=== PATIENT | female | born 1995 | race Caucasian/White ===

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

== ENCOUNTER 2017-06-28 22:01 | Emergency (ER) | payer SELFPAY ==
[~2017-06-28] VITALS: Ht 154.9 cm; Wt 73.1 kg
[~2017-06-28 22:01] MED LIST: FLUC200T PO
[2017-06-28 22:05] VITALS: BP 130/71
--- NOTE | 2017-06-28 22:10 | NUR ---
TO LOBBY AMBULATORY, IN STABLE CONDITION,A/W FOR BED, ERMD NOTED.
[2017-06-28 22:11] VITALS: BP 130/71
--- NOTE | 2017-06-29 01:49 | NUR ---
PATIENT LEFT WITHOUT BEING SEEN BY DR. FONTAINE. NO FURTHER CARE PROVIDED FOR PATIENT.
== END 2017-06-29 01:49 | disposition left against medical advice (07) ==
LOC: MED 22:01
DX: O26.891 Other specified pregnancy related conditions, first trimester (principal); R10.9 Unspecified abdominal pain

== ENCOUNTER 2020-03-24 22:37 | Observation (INO) | payer MEDICAID ==
[~2020-03-24] VITALS: Ht 157.5 cm; Wt 84.8 kg
[2020-03-24 23:25] VITALS: BP 106/69
== END 2020-03-25 01:50 | disposition home or self-care (01) ==
LOC: MLD 22:37
PROVIDERS: ADMIT Obstetrics & Gynecology; ATTEND Obstetrics & Gynecology
DX: O62.9 Abnormality of forces of labor, unspecified (principal); O46.93 Antepartum hemorrhage, unspecified, third trimester; O34.219 Maternal care for unspecified type scar from previous cesarean delivery; Z88.6 Allergy status to analgesic agent; Z91.018 Allergy to other foods; Z3A.36 36 weeks gestation of pregnancy
CPT/HCPCS: 59025; 76805; 81000; G0378; Q0092

== ENCOUNTER 2020-03-26 08:03 | Inpatient (IN) | payer MEDICAID ==
[~2020-03-26] VITALS: Ht 157.5 cm; Wt 84.8 kg
[2020-03-26] MEDS ORDERED: LACTATED RINGERS 1,000 ML IV SCH (09:00)
[2020-03-26] MEDS ORDERED: CITRIC ACID/SODIUM CITRATE 30 ML UDC PO SCH (09:00)
--- NOTE | 2020-03-26 09:08 | NUR ---
PATIENT HAS BEEN SCREENED AND CATEGORIZED LOW NUTRITION RISK. PATIENT WILL BE SEEN WITHIN 7 DAYS OF ADMISSION. 04/01/[address]
[2020-03-26 10:43] LABS: BASOPHILS % (AUTO) 0.6 % (0.0-2.0); EOSINOPHILS % (AUTO) 0.5 % (0.0-4.0); HEMATOCRIT 34.8 % (36-48); HEMOGLOBIN 11.6 g/dL (12.0-16.0); LYMPHOCYTES # (AUTO) 1.2 K/uL (2.5-16.5); LYMPHOCYTES % (AUTO) 20.3 % (20.5-51.1); MEAN CORPUSCULAR HEMOGLOBIN 29 pg (27-31); MEAN CORPUSCULAR HGB CONC 33 g/dL (33-37); MEAN CORPUSCULAR VOLUME 87.1 fL (80-94); MONOCYTES # (AUTO) 0.5 K/uL (0.8-1.0); MONOCYTES % (AUTO) 7.4 % (1.7-9.3); NEUTROPHILS # (AUTO) 4.4 K/uL (1.8-7.7); NEUTROPHILS % (AUTO) 71.2 % (42.2-75.2); PLATELET COUNT (AUTO) 193 K/uL (140-450); RED CELL DISTRIBUTION WIDTH 12.6 % (11.6-13.7); WHITE BLOOD COUNT (AUTO) 6.1 K/uL (4.8-10.8)
[2020-03-26 10:48] LABS: APPEARANCE,URINE CLEAR (CLEAR); BILIRUBIN,URINE NEGATIVE (NEGATIVE); BLOOD, URINE NEGATIVE (NEGATIVE); COLOR,URINE YELLOW (YELLOW); LEUKOCYTE ESTERASE ,URINE TRACE (NEGATIVE); NITRITE, URINE NEGATIVE (NEGATIVE); PH,URINE 6.5 (5.0-9.0); UGLUCOSE NEGATIVE (NEGATIVE)
[2020-03-26 10:54] LABS: ALBUMIN 2.8 g/dL (3.4-5.0); ANION GAP 12.8 (8-16); CARBON DIOXIDE 24.4 mmol/L (21-32); CREATININE 0.5 mg/dL (0.6-1.3); POTASSIUM 4.2 mmol/L (3.5-5.1); TOTAL BILIRUBIN 0.3 mg/dL (0.0-1.0)
[2020-03-26 12:40] LABS: RBC,URINE NONE SEEN /HPF (0-5)
[2020-03-26 12:41] LABS: WBC,URINE 0-5 /HPF (0-5)
[2020-03-26 13:20] VITALS: BP 108/58
[2020-03-26] MEDS ORDERED: IBUPROFEN 800 MG TAB PO PRN (17:20)
[2020-03-26] MEDS ORDERED: TEMAZEPAM 15 MG CAP PO PRN (17:20)
[2020-03-26] MEDS ORDERED: KETOROLAC 30 MG/ML VIAL IVP PRN (17:20)
[2020-03-26] MEDS ORDERED: METHYLERGONOVINE 0.2 MG/ML AMP IM PRN (17:20)
[2020-03-26] MEDS ORDERED: oxyCODONE/APAP 5/325 MG 1 TAB TAB PO PRN (17:20)
[2020-03-26] MEDS ORDERED: fentaNYL citrate 0.05 MG/ML VIAL ONE (17:40)
[2020-03-26] MEDS ORDERED: MORPHINE PRES FREE 10 MG/10 ML AMP IV ONE (17:41)
[2020-03-26] MEDS ORDERED: MIDAZOLAM 2 MG/2 ML VIAL ONE (17:41)
[2020-03-26] MEDS ORDERED: ONDANSETRON 4 MG/2 ML VIAL ONE (18:02)
[2020-03-26] MEDS ORDERED: METOCLOPRAMIDE 10 MG/2 ML INJ VIAL ONE (18:02)
[2020-03-26] MEDS ORDERED: DEXAMETHASONE 4 MG/ML VIAL ONE (18:02)
[2020-03-26] MEDS ORDERED: OXYTOCIN 20 UNITS/LR PREMIX 1,000 ML IV ONE (18:52)
[2020-03-26] MEDS ORDERED: ONDANSETRON 4 MG/2 ML VIAL IVP PRN (18:55)
[2020-03-26] MEDS ORDERED: diphenhydrAMINE 50 MG/ML VIAL IVP PRN (18:55)
[2020-03-26] MEDS ORDERED: NALOXONE 0.4 MG/ML VIAL IVP PRN (18:55)
[2020-03-27] MEDS: KETOROLAC 30 MG/ML VIAL IM/IVP SCH ×4 (00:13→17:37)
[2020-03-27] MEDS ORDERED: OXYTOCIN 20 UNITS/LR PREMIX 1,000 ML IV ONE (00:31)
[2020-03-27] MEDS: OXYTOCIN 20 UNITS in LACTATED RINGERS 1,000 ML IV SCH ×2 (01:50→09:29)
[2020-03-27 06:00] LABS: BASOPHILS % (AUTO) 0.3 % (0.0-2.0); HEMATOCRIT 34.2 % (36-48); HEMOGLOBIN 11.3 g/dL (12.0-16.0); LYMPHOCYTES % (AUTO) 8.6 % (20.5-51.1); MEAN CORPUSCULAR HEMOGLOBIN 29 pg (27-31); MEAN CORPUSCULAR HGB CONC 33 g/dL (33-37); MEAN CORPUSCULAR VOLUME 87.5 fL (80-94); MONOCYTES # (AUTO) 0.5 K/uL (0.8-1.0); MONOCYTES % (AUTO) 4.4 % (1.7-9.3); NEUTROPHILS # (AUTO) 9.7 K/uL (1.8-7.7); NEUTROPHILS % (AUTO) 86.7 % (42.2-75.2); PLATELET COUNT (AUTO) 176 K/uL (140-450); RED BLOOD CELL COUNT(AUTO) 3.91 MIL/uL (4.20-5.40); RED CELL DISTRIBUTION WIDTH 12.8 % (11.6-13.7); WHITE BLOOD COUNT (AUTO) 11.2 K/uL (4.8-10.8)
[2020-03-27] MEDS ORDERED: KETOROLAC 30 MG/ML VIAL IVP PRN (06:00)
[2020-03-27] MEDS ORDERED: IBUPROFEN 800 MG TAB PO PRN (06:00)
[2020-03-27] MEDS: SODIUM PHOSPHATE 118 ML ENEM RC SCH (09:00)
[2020-03-27] MEDS: DOCUSATE SOD/SENNA 50/8.6 MG 1 TAB PO SCH (21:29)
[2020-03-27] MEDS: oxyCODONE/APAP 5/325 MG 1 TAB TAB PO PRN (23:01)
[2020-03-28] MEDS ORDERED: KETOROLAC 30 MG/ML VIAL IVP PRN (06:00)
[2020-03-28] MEDS ORDERED: IBUPROFEN 800 MG TAB PO PRN (06:00)
[2020-03-28] MEDS: oxyCODONE/APAP 5/325 MG 1 TAB TAB PO PRN ×3 (09:01→22:37)
[2020-03-28] MEDS: SIMETHICONE 80 MG TAB.CHEW PO PRN ×2 (09:01→13:13)
[2020-03-28] MEDS: SODIUM PHOSPHATE 118 ML ENEM RC SCH (09:55)
[2020-03-28] MEDS: DOCUSATE SOD/SENNA 50/8.6 MG 1 TAB PO SCH (21:00)
[2020-03-29] MEDS ORDERED: CAMERA MC ONE (02:36)
[2020-03-29] MEDS: oxyCODONE/APAP 5/325 MG 1 TAB TAB PO PRN (08:29)
[2020-03-29] MEDS: SODIUM PHOSPHATE 118 ML ENEM RC SCH (09:00)
[2020-03-29] MEDS ORDERED: IBUP-2213 PO (15:19)
[2020-03-29] MEDS ORDERED: FERR325E14 PO (15:19)
[2020-03-29] MEDS ORDERED: ACET-5629 PO (15:20)
== END 2020-03-29 16:00 | disposition home or self-care (01) | DRG 540 ==
LOC: MFCC 08:03 → OBSVTOIN 08:03 → MFCC 19:45
PROVIDERS: ADMIT Obstetrics & Gynecology; ATTEND Obstetrics & Gynecology
PROC: 10D00Z1 Extraction of Products of Conception, Low, Open Approach (ICD-10-PCS; principal; 2020-03-26 17:00)
PROC: 3E0234Z Introduction of Serum, Toxoid and Vaccine into Muscle, Percutaneous Approach (ICD-10-PCS; 2020-03-28)
DX: O34.211 Maternal care for low transverse scar from previous cesarean delivery (principal); Z20.828 Contact with and (suspected) exposure to other viral communicable diseases; Z37.0 Single live birth; Z3A.37 37 weeks gestation of pregnancy; Z88.6 Allergy status to analgesic agent; Z91.010 Allergy to peanuts; Z91.018 Allergy to other foods; Z23 Encounter for immunization
CPT/HCPCS: 36415; 80053; 81001; 85025; 86592; 86886; 86900; 86901; 90715; J0690; J1100; J1200; J1885; J2250; J2270; J2405; J2590; J2765; J3010; J7060; J7120

== ENCOUNTER 2022-01-13 10:33 | Observation (INO) | payer MEDICAID ==
[~2022-01-13] VITALS: Ht 157.5 cm; Wt 81.6 kg
[~2022-01-13 10:33] MED LIST changes: +ACET-5629 PO; +FERR325E14 PO; +IBUP-2213 PO
[2022-01-13 11:59] VITALS: BP 111/64
[2022-01-13] MEDS ORDERED: BETAMETH ACET/BETAMETH NA PH 30 MG/5 ML VIAL IM SCH (13:50)
[2022-01-13] MEDS ORDERED: LACTATED RINGERS 1,000 ML IV SCH ×2 (13:50→14:50)
[2022-01-13] MEDS ORDERED: TERBUTALINE 1 MG/ML VIAL SUBQ SCH (13:50)
[2022-01-13] MEDS ORDERED: TERBUTALINE 1 MG/ML VIAL SUBQ ONE (13:59)
== END 2022-01-13 19:20 | disposition home or self-care (01) ==
LOC: MLD 10:33
PROVIDERS: ADMIT Obstetrics & Gynecology; ATTEND Obstetrics & Gynecology
DX: O62.9 Abnormality of forces of labor, unspecified (principal); Z20.822 Contact with and (suspected) exposure to COVID-19; Z3A.35 35 weeks gestation of pregnancy
CPT/HCPCS: 59025; 81000; 87086; 87426; 96360; 96372; G0378; J0702; J3105

== ENCOUNTER 2022-01-14 13:20 | Observation (INO) | payer MEDICAID ==
[~2022-01-14] VITALS: Ht 157.5 cm; Wt 85.3 kg
[2022-01-14] MEDS ORDERED: BETAMETH ACET/BETAMETH NA PH 30 MG/5 ML VIAL IM SCH (13:44)
== END 2022-01-14 15:08 | disposition home or self-care (01) ==
LOC: MLD 13:20
PROVIDERS: ADMIT Obstetrics & Gynecology; ATTEND Obstetrics & Gynecology
DX: O62.9 Abnormality of forces of labor, unspecified (principal); Z3A.35 35 weeks gestation of pregnancy
CPT/HCPCS: 59025; 96372; G0378; J0702

== ENCOUNTER 2022-01-29 11:51 | Inpatient (IN) | payer MEDICAID ==
[~2022-01-29] VITALS: Ht 157.5 cm; Wt 83.5 kg
[2022-01-29] MEDS: LACTATED RINGERS 1,000 ML IV SCH ×2 (02:00→21:34)
[~2022-01-29 11:51] MED LIST changes: -ACET-5629 PO; -FLUC200T PO; -IBUP-2213 PO
[2022-01-29] MEDS ORDERED: PRETAB PO (12:28)
[2022-01-29] MEDS: LACTATED RINGERS 500 ML IV SCH ×3 (12:40→17:15)
[2022-01-29] MEDS ORDERED: MORPHINE SULFATE 10 MG/ML VIAL ONE ×2 (12:47→16:25)
[2022-01-29] MEDS: MORPHINE SULFATE 5 MG/ML VIAL IVP PRN ×2 (12:54→16:28)
[2022-01-29] MEDS: TERBUTALINE 1 MG/ML VIAL SUBQ SCH ×2 (13:00→13:31)
[2022-01-29 13:15] LABS: BASOPHILS % (AUTO) 0.6 % (0.0-2.0); EOSINOPHILS # (AUTO) 0.1 K/uL (0-0.4); EOSINOPHILS % (AUTO) 0.7 % (0.0-4.0); HEMATOCRIT 33.9 % (36-48); HEMOGLOBIN 11.3 g/dL (12.0-16.0); LYMPHOCYTES # (AUTO) 1.4 K/uL (2.5-16.5); LYMPHOCYTES % (AUTO) 19.4 % (20.5-51.1); MEAN CORPUSCULAR HEMOGLOBIN 28 pg (27-31); MEAN CORPUSCULAR HGB CONC 33 g/dL (33-37); MEAN CORPUSCULAR VOLUME 84.4 fL (80-94); MONOCYTES # (AUTO) 0.5 K/uL (0.8-1.0); MONOCYTES % (AUTO) 7.3 % (1.7-9.3); NEUTROPHILS # (AUTO) 5.3 K/uL (1.8-7.7); PLATELET COUNT (AUTO) 239 K/uL (140-450); RED BLOOD CELL COUNT(AUTO) 4.01 MIL/uL (4.20-5.40); RED CELL DISTRIBUTION WIDTH 13.2 % (11.6-13.7); WHITE BLOOD COUNT (AUTO) 7.4 K/uL (4.8-10.8)
[2022-01-29 13:20] VITALS: BP 101/58
[2022-01-29 15:07] LABS: APPEARANCE,URINE SL CLOUDY (CLEAR); BILIRUBIN,URINE NEGATIVE (NEGATIVE); BLOOD, URINE NEGATIVE (NEGATIVE); COLOR,URINE YELLOW (YELLOW); LEUKOCYTE ESTERASE ,URINE 3+ (NEGATIVE); NITRITE, URINE NEGATIVE (NEGATIVE); UGLUCOSE NEGATIVE (NEGATIVE)
[2022-01-29 15:19] LABS: RBC,URINE 0-5 /HPF (0-5)
[2022-01-29 15:20] LABS: OTHER CASTS, URINE None Seen /LPF (None Seen)
[2022-01-30] MEDS ORDERED: MORPHINE SULFATE 10 MG/ML VIAL ONE ×2 (00:17→07:49)
[2022-01-30 00:21] VITALS: BP 94/52
[2022-01-30] MEDS: LACTATED RINGERS 1,000 ML IV SCH ×2 (02:00→06:00)
[2022-01-30] MEDS: MORPHINE SULFATE 5 MG/ML VIAL IVP PRN (07:52)
[2022-01-30] MEDS ORDERED: ceFAZolin 2,000 MG VIAL IV SCH (09:40)
[2022-01-30] MEDS: LACTATED RINGERS 500 ML IV SCH (09:43)
[2022-01-30 10:10] LABS: BASOPHILS % (AUTO) 0.8 % (0.0-2.0); EOSINOPHILS # (AUTO) 0.1 K/uL (0-0.4); EOSINOPHILS % (AUTO) 0.9 % (0.0-4.0); HEMATOCRIT 36.4 % (36-48); HEMOGLOBIN 11.9 g/dL (12.0-16.0); LYMPHOCYTES # (AUTO) 1.7 K/uL (2.5-16.5); LYMPHOCYTES % (AUTO) 29.3 % (20.5-51.1); MEAN CORPUSCULAR HEMOGLOBIN 28 pg (27-31); MEAN CORPUSCULAR HGB CONC 33 g/dL (33-37); MEAN CORPUSCULAR VOLUME 85.4 fL (80-94); MONOCYTES # (AUTO) 0.3 K/uL (0.8-1.0); MONOCYTES % (AUTO) 5.5 % (1.7-9.3); NEUTROPHILS # (AUTO) 3.7 K/uL (1.8-7.7); NEUTROPHILS % (AUTO) 63.5 % (42.2-75.2); PLATELET COUNT (AUTO) 215 K/uL (140-450); RED BLOOD CELL COUNT(AUTO) 4.27 MIL/uL (4.20-5.40); RED CELL DISTRIBUTION WIDTH 13.6 % (11.6-13.7); WHITE BLOOD COUNT (AUTO) 5.8 K/uL (4.8-10.8)
[2022-01-30] MEDS ORDERED: MORPHINE PRES FREE 10 MG/10 ML AMP IV ONE (10:18)
[2022-01-30] MEDS ORDERED: MIDAZOLAM 2 MG/2 ML VIAL ONE (10:19)
[2022-01-30 10:43] LABS: ALBUMIN 2.8 g/dL (3.4-5.0); CARBON DIOXIDE 24.7 mmol/L (21-32); CREATININE 0.6 mg/dL (0.6-1.3); POTASSIUM 3.7 mmol/L (3.5-5.1); TOTAL BILIRUBIN 0.4 mg/dL (0.0-1.0)
[2022-01-30] MEDS ORDERED: KETOROLAC 30 MG/ML VIAL IVP PRN (10:55)
[2022-01-30] MEDS ORDERED: oxyCODONE/APAP 5/325 MG 1 TAB TAB PO PRN (10:55)
[2022-01-30] MEDS ORDERED: METHYLERGONOVINE 0.2 MG/ML AMP IM PRN (10:55)
[2022-01-30] MEDS ORDERED: TEMAZEPAM 15 MG CAP PO PRN (10:55)
[2022-01-30] MEDS ORDERED: MAGNESIUM CITRATE 300 ML BTL PO SCH (10:55)
[2022-01-30] MEDS ORDERED: OXYTOCIN 20 UNITS in LACTATED RINGERS 1,000 ML IV SCH ×2 (10:55→11:10)
[2022-01-30] MEDS ORDERED: diphenhydrAMINE 50 MG/ML VIAL ONE (11:02)
[2022-01-30] MEDS ORDERED: ONDANSETRON 4 MG/2 ML VIAL IVP PRN ×2 (11:10)
[2022-01-30] MEDS ORDERED: NALOXONE 0.4 MG/ML VIAL IVP PRN ×3 (11:10)
[2022-01-30] MEDS ORDERED: NALBUPHINE 10 MG/ML AMP IVP PRN (11:10)
[2022-01-30] MEDS ORDERED: MEPERIDINE 25 MG/ML SYR IVP PRN (11:10)
[2022-01-30] MEDS ORDERED: HYDROmorphone 1 MG/ML AMP IVP PRN (11:10)
[2022-01-30] MEDS ORDERED: diphenhydrAMINE 50 MG/ML VIAL IVP PRN ×2 (11:10)
[2022-01-30] MEDS: OXYTOCIN 20 UNITS/LR PREMIX 1,000 ML IV ONE ×3 (11:48→12:14)
[2022-01-30] MEDS ORDERED: DOCUSATE SOD/SENNA 50/8.6 MG 1 TAB PO SCH (21:00)
[2022-01-30] MEDS ORDERED: OXYTOCIN 20 UNITS/LR PREMIX 1,000 ML IV ONE (21:37)
[2022-01-30] MEDS: OXYTOCIN 20 UNITS in LACTATED RINGERS 1,000 ML IV SCH (21:42)
[2022-01-31] MEDS ORDERED: OXYTOCIN 20 UNITS/LR PREMIX 1,000 ML IV ONE (05:48)
[2022-01-31] MEDS: OXYTOCIN 20 UNITS in LACTATED RINGERS 1,000 ML IV SCH (05:51)
[2022-01-31] MEDS: SIMETHICONE 80 MG TAB.CHEW PO PRN ×2 (08:40→18:19)
[2022-01-31] MEDS: oxyCODONE/APAP 5/325 MG 1 TAB TAB PO PRN ×2 (08:40→18:20)
--- NOTE | 2022-01-31 11:01 | NUR ---
PATIENT HAS BEEN SCREENED AND CATEGORIZED LOW NUTRITION RISK. PATIENT WILL BE SEEN WITHIN 7 DAYS OF ADMISSION. 01/30/22-02/05/[address]
[2022-01-31 12:39] LABS: BASOPHILS % (AUTO) 0.3 % (0.0-2.0); EOSINOPHILS # (AUTO) 0.1 K/uL (0-0.4); EOSINOPHILS % (AUTO) 0.5 % (0.0-4.0); HEMATOCRIT 33.9 % (36-48); HEMOGLOBIN 11.1 g/dL (12.0-16.0); LYMPHOCYTES % (AUTO) 8.5 % (20.5-51.1); MEAN CORPUSCULAR HEMOGLOBIN 28 pg (27-31); MEAN CORPUSCULAR HGB CONC 33 g/dL (33-37); MONOCYTES # (AUTO) 0.4 K/uL (0.8-1.0); MONOCYTES % (AUTO) 3.8 % (1.7-9.3); NEUTROPHILS % (AUTO) 86.9 % (42.2-75.2); PLATELET COUNT (AUTO) 221 K/uL (140-450); RED BLOOD CELL COUNT(AUTO) 3.99 MIL/uL (4.20-5.40); RED CELL DISTRIBUTION WIDTH 13.4 % (11.6-13.7); WHITE BLOOD COUNT (AUTO) 11.5 K/uL (4.8-10.8)
[2022-01-31] MEDS: IBUPROFEN 800 MG TAB PO PRN (20:01)
[2022-02-01] MEDS: IBUPROFEN 800 MG TAB PO PRN ×3 (03:51→17:07)
[2022-02-02 06:07] LABS: HEPATITIS B SURFACE ANTIGEN Negative (Negative)
== END 2022-02-01 17:35 | disposition home or self-care (01) | DRG 540 ==
LOC: MFCC 11:51 → OBSVTOIN 01-30 09:55 → MFCC 01-30 12:20
PROVIDERS: ADMIT Obstetrics & Gynecology; ATTEND Obstetrics & Gynecology
PROC: 10D00Z1 Extraction of Products of Conception, Low, Open Approach (ICD-10-PCS; principal; 2022-01-30 10:30)
DX: O34.211 Maternal care for low transverse scar from previous cesarean delivery (principal); Z20.822 Contact with and (suspected) exposure to COVID-19; Z37.0 Single live birth; Z3A.37 37 weeks gestation of pregnancy
CPT/HCPCS: G0378 ×13; 36415; 51702; 80053; 81001; 85025; 85610; 85730; 86592; 86762; 86886; 86900; 86901; 87086; 87340; J1200; J2250; J2270; J2405; J2590; J3105; J7120